=== PATIENT | male | born 1945 | race Caucasian/White ===

== ENCOUNTER 2017-01-21 12:45 | Emergency (ER) | payer OTHER ==
[2017-01-21 13:41] LABS: Hematocrit 41.1 % (35.5-45.6); Hemoglobin 13.4 gm/dl (11.8-15.2); Mean Corpuscular HGB Conc 33 % (32-34); Mean Corpuscular Hemoglobin 29 pg (28-32); Mean Corpuscular Volume 87 fl (84-94); Platelet Count 178 K/mm3 (140-440); Red Blood Count 4.72 M/mm3 (3.65-5.03); Red Cell Distribution Width 14.1 % (13.2-15.2); White Blood Count 5.1 K/mm3 (4.5-11.0)
[2017-01-21 14:02] LABS: Anion Gap 19 mmol/L; BUN/Creatinine Ratio 13.84; Blood Urea Nitrogen 18 mg/dL (9-20); Carbon Dioxide 26 mmol/L (22-30); Chloride 98.1 mmol/L (98-107); Glucose 112 mg/dL (75-100); Potassium 3.6 mmol/L (3.6-5.0); Sodium 139 mmol/L (137-145)
[2017-01-21 14:20] LABS: Basophils % (Manual) 0 % (0.0-1.8); Blastocytes % (Manual) 0 %; Diff Status Complete; Eosinophils % (Manual) 0 % (0.0-4.3); RBC Morphology Normal
[2017-01-21] MEDS ORDERED: TYLENOL PO ONE (21:37)
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
--- NOTE | 2017-01-21 22:41 | Cat Scan Report ---
FINAL REPORT PROCEDURE: CT HEAD/BRAIN WO CON TECHNIQUE: Computerized tomography of the head was performed without contrast material. HISTORY: Syncope COMPARISON: No prior studies are available for comparison. FINDINGS: Skull and scalp: Normal. Paranasal sinuses: Normal. Ventricles and subarachnoid spaces: Normal. Cerebrum: No evidence of hemorrhage, acute infarction or mass . Cerebellum and brainstem: No evidence of hemorrhage, acute infarction or mass. Vasculature: Normal. Comments: None. IMPRESSION: Overall negative CT brain without contrast with no CT evidence of intracranial hemorrhage or edema or infarct or acute finding.
[2017-01-21 23:46] VITALS: BP 134/81
--- NOTE | 2017-01-22 09:02 | XRay Report ---
PORTABLE CHEST: An AP portable view of the chest demonstrates a normal cardiac contour considering the limits of this technique. The lungs are clear with no evidence of infiltrate, fluid or failure. IMPRESSION: Normal portable chest.
== END 2017-01-22 00:31 | disposition home or self-care (01) ==
LOC: ED 12:45
DX: B34.9 Viral infection, unspecified (principal); J02.9 Acute pharyngitis, unspecified; R55 Syncope and collapse; R50.9 Fever, unspecified; Z87.891 Personal history of nicotine dependence
CPT/HCPCS: 36415; 70450; 71010; 80048; 84484; 85007; 85025; 87040; 87116; 87400; 87430; 93005; 93010